=== PATIENT | female | born 2000 | race Caucasian/White ===

== ENCOUNTER 2021-02-13 17:41 | Emergency (ER) | payer BC, SELFPAY ==
[2021-02-13] VITALS (7 sets, daily range): BP systolic 105–131; BP diastolic 74–84; PULSE 61–76; RESP 16–18; TEMP 36.1–36.8; O2SAT 99–100
--- NOTE | ~2021-02-13 | US_ITS ---
US pelvic complete DATE: 02/13/2021 21:37 INDICATION: Large right ovarian cyst. Evaluate for torsion. Lower abdominal pain, emesis. TECHNIQUE: Real-time imaging via transabdominal approach COMPARISON: 02/13/2021 CT abdomen pelvis FINDINGS: The uterus measures 6.6 cm height, 3.7 cm AP and 3.8 cm transverse dimension. The central e ndometrial echo complex measures 10 mm AP dimension. There is an approximately 8 cm mildly complicated cyst of the right ovary, with through transmission posterior enhancement. There is vascular flow to the right ovary. There is mild free fluid in the pos terior cul-de-sac. The left ovary is not visualized.. IMPRESSION: 8 cm mildly complicated); no evidence of right ovarian torsion Mild free fluid collection in posterior cul-de-sac Left ovary not visualized Reviewed, dictated and finalized at [facility] Reviewed, dictated and finalized at [facility].
--- NOTE | ~2021-02-13 | CT_ITS ---
EXAMINATION: CT abdomen pelvis w con DATE: 02/13/2021 20:20 INDICATION: Lower abdominal pain, emesis TECHNIQUE: Computed tomography (CT) of the abdomen and pelvis was performed with 100 cc Omnipaque 350 intravenous contrast. Automated exposure control and iterative reconstruction technique were employe d. Exam dose: 798.62 mGy-cm total exam DLP. COMPARISON: None. FINDINGS: The lung bases are clear. Normal heart size. No pericardial or pleural effusion. The liver, gallbladder, bile ducts, pancreas and pancreatic duct are unremarkable. 2 cm splenic cyst. Normal morphology of the adrenal glands. 5 mm right renal cyst. The kidneys are otherwise unremarkable. Normal caliber of the abdominal aorta. No intraperitoneal or retroperitoneal or pelvic mass lesion o r lymphadenopathy. Normal appendix. No bowel obstruction or intraperitoneal free air. 7.2 x 8.7 cm right ovarian cystic lesion. Involuting peripherally enhancing 1.9 cm left ovarian cyst. There is mild free fluid in the left adne xal area likely due to involuting ruptured cyst. Uterus appears normal. Included skeletal structures are unremarkable. IMPRESSION: 1.9 cm peripherally enhancing involuting ruptured left ovarian cyst with mild free fluid in the left adnexal area 7.2 x 8.7 cm right ovarian cyst 2 cm splenic cyst 5 mm right renal cyst Reviewed, dictated and finalized at [facility]. Reviewed, dictated and finalized at [facility]. IMPRESSION: 1.9 cm peripherally enhancing involuting ruptured left ovarian cys t with mild free fluid in the left adnexal area 7.2 x 8.7 cm right ovarian cyst 2 cm splenic cyst 5 mm right renal cyst
[2021-02-13 18:00] LABS: Basophils Absolute Auto 0.1 K/mm3 (0.0-0.1); Basophils Percent Auto 0.9 % (0.2-1.2); Eosinophils Absolute Auto 0.5 K/mm3 (0-0.3); Eosinophils Percent Auto 6.8 % (0-4.4); Hematocrit 42.5 % (37.0-47.0); Hemoglobin 14.1 g/dL (12.0-15.0); Immature Granulocyte Absolute 0.03 K/mm3 (0.00-0.031); Immature Granulocyte Percent A 0.4 % (0-0.5); Lymphocytes Absolute Auto 1.99 K/mm3 (0.9-3.2); Lymphocytes Percent Auto 29.4 % (18.3-44.2); Mean Corpuscular HGB Conc 33.2 g/dl (32-36); Mean Corpuscular Hemoglobin 30.9 pg (26-34); Mean Corpuscular Volume 93.2 fl (80-100); Mean Platelet Volume 9.6 fl (7.4-10.4); Monocytes Absolute Auto 0.6 K/mm3 (0.1-0.6); Monocytes Percent Auto 9.3 % (2.6-8.5); Neutrophils Absolute Auto 3.6 K/mm3 (1.3-6.7); Neutrophils Percent Auto 53.2 % (45.5-73.1); Platelet Count Result 168 k/mm3 (150-375); Red Blood Count 4.56 M/mm3 (4.2-5.4); Red Cell Distribution Width 12.4 % (11.5-14.5); White Blood Count 6.8 K/mm3 (4.5-10.0)
[2021-02-13 18:12] LABS: Alanine Aminotransferase 18 U/L (4-35); Albumin Level 4.3 g/dL (3.7-5.6); Alkaline Phosphatase 58 U/L (45-116); Anion Gap 3 mmol/L (8-16); Aspartate Amino Transferase 22 U/L (14-36); Bilirubin,Total 0.8 mg/dL (0.2-1.3); Blood Urea Nitrogen 9 mg/dL (8-21); Calcium 9.4 mg/dL (8.9-10.7); Carbon Dioxide 33 mmol/L (22-30); Chloride 104 mmol/L (98-107); Estimated CRCL calculation 111 ml/min; Estimated Glomerular Filt Rate > 60; Glucose 86 mg/dL (65-110); Lipase 75 U/L (23-300); Potassium 3.8 mmol/L (3.4-5.0); Sodium 140 mmol/L (134-143)
--- NOTE | 2021-02-13 19:46 | ED.ABDPAIN ---
HPI - Abdominal Pain General Chief Complaint: Abdominal Pain Stated Complaint: ABD Pain Time Seen by Provider: 02/13/21 19:21 Source: patient and RN notes reviewed Mode of arrival: ambulatory Limitations: no limitations History of Present Illness HPI narrative: This is a 20 year old female who presents for evaluation of nausea, vomiting, diarrhea and abdominal pain. She developed right side abdominal pain yesterday. She reports pain is now located around her umbilicus and it has been constant sharp pain. She reports associated nausea, vomiting and nonbloody diarrhea. She denies fever or chills. She took Tylenol last night but she states this seemed to worsen her pain. She states 2 years ago, she was diagnosed with colitis but she did not have abdominal pain with her diagnosis of colitis. She also states her diarrhea had resolved until yesterday. She also denies sick contacts or possible food poisoning. Related Data Allergies Allergy/AdvReac Type Severity Reaction Status Date / Time No Known Allergies Allergy Verified 02/13/21 19:54 Review of Systems Review of Systems: All systems reviewed & are unremarkable except as noted in HPI and below PMFSH Past Medical History Medical History (Updated 02/14/21 @ 00:01 by Madhuri Garzon) Microscopic colitis, unspecified Surgical History Surgical History (Updated 02/13/21 @ 19:47 by Sydnie Adamson MD) H/O colonoscopy Social History Social History (Updated 02/13/21 @ 19:47 by Sydnie Adamson MD) Smoking status: Never smoker Alcohol intake: never Exam Const: General: no acute distress and alert Orientation/consciousness: patient oriented x3 Eyes: EOM: EOMs intact bilaterally Resp: Effort & Inspection: normal respiratory effort and no retractions Auscultation: clear to auscultation bilaterally Cardio: Rate: regular rate Rhythm: regular rhythm Heart sounds: no murmurs GI: GI Palp: Yes Soft to palpation, Yes Tenderness to palpation present (GI) (LLQ, suprapubic), No Guarding due to palpation present (GI) and No Rigid due to palpation Auscultation: normal bowel sounds Neuro: General: patient oriented x3, moves all extremities and CN's II-XI intact bilaterally Psych: Mental Status: mental status grossly normal Affect: normal affect Course Reevaluation(s) Reevaluation #1: I Discussed with patient and her mother about CT and ovarian cyst. She is comfortable now. I explained she will need to see her produce buyer for evaluation and possible removal of cyst. Date: 02/13/21 Time: 22:41 Vital Signs Vital signs: Vital Signs Temperature 96.9 F L 02/13/21 17:43 Pulse Rate 72 02/13/21 17:43 Respiratory Rate 18 02/13/21 17:43 Blood Pressure 131/81 02/13/21 17:43 Pulse Oximetry 100 02/13/21 17:43 Temperature 98.2 F 02/13/21 20:02 Pulse Rate 70 02/13/21 22:47 Respiratory Rate 16 02/13/21 22:47 Blood Pressure 116/74 02/13/21 22:47 Pulse Oximetry 99 02/13/21 22:47 MDM - Abdominal Pain Lab Data Attestation: I reviewed the patient's lab results. Result diagrams: 02/13/21 17:50 02/13/21 17:50 Labs: Lab Results 02/13/21 02/13/21 02/13/21 Range/Units 17:50 17:50 19:48 WBC 6.8 (4.5-10.0) K/mm3 RBC 4.56 (4.2-5.4) M/mm3 Hgb 14.1 (12.0-15.0) g/dL Hct 42.5 (37.0-47.0) % MCV 93.2 (80-100) fl MCH 30.9 (26-34) pg MCHC 33.2 (32-36) g/dl RDW 12.4 (11.5-14.5) % Plt Count 168 (150-375) k/mm3 MPV 9.6 (7.4-10.4) fl Immature Gran % (Auto) 0.4 (0-0.5) % Neut % (Auto) 53.2 (45.5-73.1) % Lymph % (Auto) 29.4 (18.3-44.2) % [place] % (Auto) 9.3 H (2.6-8.5) % Eos % (Auto) 6.8 H (0-4.4) % Baso % (Auto) 0.9 (0.2-1.2) % Lymph # (Auto) 1.99 (0.9-3.2) K/mm3 [place] # (Auto) 0.6 (0.1-0.6) K/mm3 Eos # (Auto) 0.5 H (0-0.3) K/mm3 Baso # (Auto) 0.1 (0.0-0.1) K/mm3 Abs Immat Gran (auto) 0.03 (0.00-
[2021-02-13] MEDS: Please add drug allergy info to patient profile. 1 EACH XX (19:55)
[2021-02-13] MEDS: ONDANSETRON INJ 4 MG/2 ML VIAL IV PUSH (19:56)
[2021-02-13 20:03] LABS: Add Urine Microscopic? YES; Amorphous Sediment Urine Few; Appearance Urine Cloudy (Clear); Bacteria Urine Trace /hpf; Bilirubin Urine Negative (Negative); Blood Urine Negative (Negative); Color Urine Yellow (Yellow); Glucose Urine UA Negative (Negative); Ketones Urine Negative (Negative); Leukocyte Esterase Ur Negative LEU/UL (Negative); Mucus Urine Few /lpf; Nitrate Urine Negative (Negative); Protein Urine Negative (Negative); Specific Grav Ur 1.025 (1.001-1.035); Squamous Epithelial Cell Urine Many /hpf (Few); Urobilinogen Urine Negative mg/dL (<2.0); WBC Urine 0-3 /hpf
== END 2021-02-13 23:00 | disposition home or self-care (01) ==
PROVIDERS: Physician Assistant; Emergency Provider General Practice
DX: N83.202 Unspecified ovarian cyst, left side (principal); N83.201 Unspecified ovarian cyst, right side; D73.4 Cyst of spleen; N28.1 Cyst of kidney, acquired
CPT/HCPCS: 36415; 74177; 76856; 80053; 81001; 81025; 83690; 85025; 96374; 96375; 99284; J0131; J2405; Q9967